=== PATIENT | female | born 1960 | race Two or more races ===

== ENCOUNTER 2021-01-13 11:15 | Inpatient (IN) | payer SELFPAY ==
[~2021-01-13] VITALS: Ht 172.7 cm; Wt 95.0 kg
[2021-01-13] MEDS ORDERED: ZINC SULFATE 220mg CAP or TAB PO ONE (11:30)
[2021-01-13] MEDS ORDERED: CHOLECALCIFEROL (VITD3) 2,000 UNIT CAP/TAB PO ONE (11:30)
[2021-01-13] MEDS ORDERED: ASCORBIC ACID 500 MG TAB PO ONE (11:30)
[2021-01-13] MEDS ORDERED: methylPREDNISolone SOD SUCC 125 MG/2 ML VL IV ONE (11:30)
[2021-01-13 12:05] LABS: Basophils # (auto) 0 10 ^3/uL (0-0.2); Basophils % (auto) 0.4 % (0.0-2.0); Eosinophils # (auto) 0 10 ^3/uL (0-0.8); Eosinophils % (auto) 0.1 % (0.0-7.0); Hematocrit 39.2 % (36.0-46.0); Hemoglobin 13.3 g/dL (12.2-16.2); Lymphocytes # (auto) 1.2 10 ^3/uL (0.4-5.4); Lymphocytes % (auto) 28.7 % (10.0-50.0); Mean Corpuscular Hemoglobin 28.5 pg (28.0-32.0); Mean Corpuscular Volume 83.9 fL (80.0-100.0); Monocytes # (auto) 0.3 10 ^3/uL (0-1.3); Monocytes % (auto) 8.1 % (0.0-12.0); Neutrophils # (auto) 2.6 10 ^3/uL (1.6-8.6); Neutrophils % (auto) 62.7 % (37.0-80.0); Nucleated Red Blood Cells % 0.2 %; Red Blood Cells 4.68 10^6/uL (4.0-5.20); Red Cell Distribution Width 14.1 % (11.8-14.3); White Blood Cell 4.1 10^3/uL (4.4-10.8)
[2021-01-13 12:30] LABS: Albumin 3.2 g/dL (3.4-5.0); Calcium 8.7 mg/dL (8.5-10.1)
[2021-01-13] MEDS ORDERED: AZITHROMYCIN 500MG/ 250ML 250 ML IV ONE (12:30)
[2021-01-13 12:33] LABS: BUN/Creatinine Ratio 13.9; Bilirubin, Total 0.6 mg/dL (0.2-1.0); Total Protein 8.9 g/dL (6.4-8.2)
[2021-01-13] MEDS ORDERED: MORPHINE SULF INJ 2 MG/ML SYRINGE 1ML IV PRN (13:15)
[2021-01-13] MEDS ORDERED: NITROGLYCERIN 0.4 MG SL TAB SL PRN (13:15)
[2021-01-13] MEDS ORDERED: REMDESIVIR PER PHARMACY 0 ML IV SCH (13:15)
[2021-01-13] MEDS ORDERED: PROMETHAZINE HCL 25 MG/ML 1ML IV PRN (13:45)
[2021-01-13] MEDS ORDERED: ACETAMINOPHEN 500 MG TAB PO PRN (13:45)
[2021-01-13] MEDS ORDERED: TEMAZEPAM 15 MG CAP PO PRN (13:45)
[2021-01-13] MEDS ORDERED: LACTULOSE 20Gm/30ML SOLN PO PRN (13:45)
[2021-01-13] MEDS ORDERED: DEXTROSE (50%) 50ML SYRG IV PRN (14:00)
[2021-01-13] MEDS: SODIUM CHLOR 0.9% PF (SALINE LOCK) 10ML VIAL/SYR IV SCH ×2 (14:00→23:00)
[2021-01-13 14:05] VITALS: BP 120/73
[2021-01-13] MEDS ORDERED: IOHEXOL 300 MG/ML 100ML BOTTLE IJ ONE (14:09)
[2021-01-13] MEDS ORDERED: REMDESIVIR 200 MG in NS 210ml LOADING DOSE ADULT IV ONE (15:00)
[2021-01-13] MEDS: FAMOTIDINE 20 MG TAB PO SCH ×2 (15:26→23:00)
[2021-01-13] MEDS: ENOXAPARIN SOD 40 MG/0.4 ML SYRINGE SC SCH ×2 (15:26→23:00)
[2021-01-13 17:50] VITALS: BP 128/84
[2021-01-13] MEDS: ACCU-CHEK COMFORT CURVE STRIP VI SCH ×2 (18:21→23:00)
[2021-01-13] MEDS: InsuLIN REG 1unit/0.01ml Soln (100units/ml) SC SCH ×2 (18:23→23:00)
[2021-01-13 20:00] VITALS: BP 134/81
[2021-01-13] MEDS: traMADol HCL 50 MG TAB PO PRN (20:11)
[2021-01-13] MEDS: BUDESONIDE (INHALATION) 180 MCG IH IN SCH (22:00)
[2021-01-13 22:20] VITALS: BP 134/81
[2021-01-13] MEDS: ALBUTEROL SULF HFA 90MCG INH 200DOSE IN PRN (22:45)
[2021-01-13] MEDS: FLORASTOR (S. BOULARDII) 250 MG CAP PO SCH (23:00)
[2021-01-14] MEDS ORDERED: guaiFENesin-DM 100/10mg/5ml SYR PO PRN (05:00)
[2021-01-14 05:20] VITALS: BP 120/80
[2021-01-14] MEDS: SODIUM CHLOR 0.9% PF (SALINE LOCK) 10ML VIAL/SYR IV SCH ×3 (06:00→21:28)
[2021-01-14] MEDS ORDERED: IVERMECTIN 3 MG TAB PO ONE (07:00)
[2021-01-14 07:14] LABS: Albumin 2.8 g/dL (3.4-5.0); Calcium 8.3 mg/dL (8.5-10.1); Potassium 4.2 mmol/L (3.5-5.1)
[2021-01-14 07:17] LABS: BUN/Creatinine Ratio 18.2; Bilirubin, Total 0.5 mg/dL (0.2-1.0); Total Protein 8.1 g/dL (6.4-8.2)
[2021-01-14] MEDS: ACCU-CHEK COMFORT CURVE STRIP VI SCH ×4 (07:23→21:29)
[2021-01-14] MEDS: InsuLIN REG 1unit/0.01ml Soln (100units/ml) SC SCH ×4 (07:23→21:33)
[2021-01-14 09:00] VITALS: BP 123/77
[2021-01-14] MEDS: ZINC SULFATE 220mg CAP or TAB PO SCH (09:42)
[2021-01-14] MEDS: FAMOTIDINE 20 MG TAB PO SCH ×2 (09:43→21:29)
[2021-01-14] MEDS: FLORASTOR (S. BOULARDII) 250 MG CAP PO SCH ×2 (09:43→21:29)
[2021-01-14] MEDS: ASCORBIC ACID 1,000 MG TAB PO SCH (09:43)
[2021-01-14] MEDS: CHOLECALCIFEROL (VITD3) 2,000 UNIT CAP/TAB PO SCH (09:43)
[2021-01-14] MEDS: DexAMETHasone SOD PHOS 10MG/1ML VIAL INJ IV SCH (09:43)
[2021-01-14] MEDS: ENOXAPARIN SOD 40 MG/0.4 ML SYRINGE SC SCH ×2 (09:44→21:29)
[2021-01-14] MEDS: BUDESONIDE (INHALATION) 180 MCG IH IN SCH ×2 (11:45→19:37)
[2021-01-14] MEDS: ALBUTEROL SULF HFA 90MCG INH 200DOSE IN PRN ×2 (11:45→19:37)
[2021-01-14 12:23] LABS: Urine Bacteria NONE SEEN /hpf (None Seen); Urine Blood Negative /uL (Negative); Urine Hyaline Cast FEW /lpf (0 - 2); Urine Specific Gravity 1.018 (1.001-1.035); Urine WBC 1 /hpf (0 - 5)
[2021-01-14 13:00] VITALS: BP 118/79
[2021-01-14] MEDS: REMDESIVIR 100mg 100 MG in SODIUM CHL 0.9% 230 ML IV SCH (15:44)
[2021-01-14] MEDS: levoFLOXacin 500MG 100 ML IV SCH (16:37)
[2021-01-14 17:00] VITALS: BP 135/75
[2021-01-14 20:00] VITALS: BP 139/87
[2021-01-14] MEDS: PROMETHAZINE W/CODEINE 5 ML ORAL SYRUP PO PRN (21:43)
[2021-01-14] MEDS: traMADol HCL 50 MG TAB PO PRN (21:44)
[2021-01-14 21:55] VITALS: BP 139/87
[2021-01-15 06:04] VITALS: BP 140/84
[2021-01-15] MEDS: ACCU-CHEK COMFORT CURVE STRIP VI SCH ×4 (06:04→21:29)
[2021-01-15] MEDS: InsuLIN REG 1unit/0.01ml Soln (100units/ml) SC SCH ×4 (06:08→21:31)
[2021-01-15] MEDS: IVERMECTIN 3 MG TAB PO SCH (06:15)
[2021-01-15] MEDS: SODIUM CHLOR 0.9% PF (SALINE LOCK) 10ML VIAL/SYR IV SCH ×3 (06:15→21:28)
[2021-01-15] MEDS: ALBUTEROL SULF HFA 90MCG INH 200DOSE IN PRN ×2 (06:20→19:42)
[2021-01-15] MEDS: BUDESONIDE (INHALATION) 180 MCG IH IN SCH ×2 (06:20→19:42)
[2021-01-15 06:36] LABS: Potassium 3.9 mmol/L (3.5-5.1)
[2021-01-15 06:44] LABS: Albumin 2.6 g/dL (3.4-5.0); BUN/Creatinine Ratio 20.9; Bilirubin, Total 0.5 mg/dL (0.2-1.0); Calcium 8.4 mg/dL (8.5-10.1)
[2021-01-15 08:30] VITALS: BP 120/81
[2021-01-15] MEDS: levoFLOXacin 500MG 100 ML IV SCH (09:45)
[2021-01-15] MEDS: FLORASTOR (S. BOULARDII) 250 MG CAP PO SCH ×2 (09:45→21:28)
[2021-01-15] MEDS: ASCORBIC ACID 1,000 MG TAB PO SCH (09:45)
[2021-01-15] MEDS: ZINC SULFATE 220mg CAP or TAB PO SCH (09:45)
[2021-01-15] MEDS: CHOLECALCIFEROL (VITD3) 2,000 UNIT CAP/TAB PO SCH (09:45)
[2021-01-15] MEDS: FAMOTIDINE 20 MG TAB PO SCH ×2 (09:45→21:29)
[2021-01-15] MEDS: DexAMETHasone SOD PHOS 10MG/1ML VIAL INJ IV SCH (09:45)
[2021-01-15] MEDS: ENOXAPARIN SOD 40 MG/0.4 ML SYRINGE SC SCH ×2 (09:46→21:29)
[2021-01-15] MEDS: PROMETHAZINE W/CODEINE 5 ML ORAL SYRUP PO PRN ×2 (10:43→22:15)
[2021-01-15 12:30] VITALS: BP 121/84
[2021-01-15] MEDS: REMDESIVIR 100mg 100 MG in SODIUM CHL 0.9% 230 ML IV SCH (14:32)
[2021-01-15 17:00] VITALS: BP 133/88
[2021-01-15 20:00] VITALS: BP 139/87
[2021-01-15 21:47] VITALS: BP 126/70
[2021-01-15] MEDS: traMADol HCL 50 MG TAB PO PRN (22:19)
[2021-01-16 05:30] VITALS: BP 133/83
[2021-01-16] MEDS: ALBUTEROL SULF HFA 90MCG INH 200DOSE IN PRN (05:59)
[2021-01-16] MEDS: BUDESONIDE (INHALATION) 180 MCG IH IN SCH (05:59)
[2021-01-16] MEDS: SODIUM CHLOR 0.9% PF (SALINE LOCK) 10ML VIAL/SYR IV SCH ×3 (06:21→21:40)
[2021-01-16] MEDS: ACCU-CHEK COMFORT CURVE STRIP VI SCH ×4 (06:21→21:40)
[2021-01-16] MEDS: IVERMECTIN 3 MG TAB PO SCH (06:22)
[2021-01-16] MEDS: InsuLIN REG 1unit/0.01ml Soln (100units/ml) SC SCH ×4 (06:35→21:43)
[2021-01-16 07:44] LABS: Potassium 3.6 mmol/L (3.5-5.1)
[2021-01-16 08:00] VITALS: BP 113/76
[2021-01-16 08:07] LABS: Albumin 2.7 g/dL (3.4-5.0); BUN/Creatinine Ratio 21.7; Bilirubin, Total 0.6 mg/dL (0.2-1.0); Calcium 8.3 mg/dL (8.5-10.1); Total Protein 8.2 g/dL (6.4-8.2)
[2021-01-16] MEDS: ENOXAPARIN SOD 40 MG/0.4 ML SYRINGE SC SCH ×2 (10:57→21:41)
[2021-01-16] MEDS: CHOLECALCIFEROL (VITD3) 2,000 UNIT CAP/TAB PO SCH (10:57)
[2021-01-16] MEDS: levoFLOXacin 500MG 100 ML IV SCH (10:58)
[2021-01-16] MEDS: FAMOTIDINE 20 MG TAB PO SCH ×2 (10:58→21:40)
[2021-01-16] MEDS: ASCORBIC ACID 1,000 MG TAB PO SCH (10:58)
[2021-01-16] MEDS: FLORASTOR (S. BOULARDII) 250 MG CAP PO SCH ×2 (10:58→21:40)
[2021-01-16] MEDS: DexAMETHasone SOD PHOS 10MG/1ML VIAL INJ IV SCH (10:59)
[2021-01-16] MEDS: ZINC SULFATE 220mg CAP or TAB PO SCH (10:59)
[2021-01-16 12:00] VITALS: BP 118/76
[2021-01-16] MEDS: REMDESIVIR 100mg 100 MG in SODIUM CHL 0.9% 230 ML IV SCH (14:35)
[2021-01-16 15:15] VITALS: BP 118/76
[2021-01-16 16:00] VITALS: BP 112/65
[2021-01-16] MEDS: PROMETHAZINE W/CODEINE 5 ML ORAL SYRUP PO PRN (20:19)
[2021-01-16] MEDS: traMADol HCL 50 MG TAB PO PRN (20:19)
[2021-01-16 22:00] VITALS: BP 136/81
[2021-01-17] MEDS: ALBUTEROL SULF HFA 90MCG INH 200DOSE IN PRN ×3 (00:49→23:10)
[2021-01-17] MEDS: BUDESONIDE (INHALATION) 180 MCG IH IN SCH ×3 (00:49→23:10)
[2021-01-17 05:00] VITALS: BP 112/68
[2021-01-17] MEDS: ACCU-CHEK COMFORT CURVE STRIP VI SCH ×4 (06:15→22:20)
[2021-01-17] MEDS: InsuLIN REG 1unit/0.01ml Soln (100units/ml) SC SCH ×4 (06:16→21:55)
[2021-01-17] MEDS: SODIUM CHLOR 0.9% PF (SALINE LOCK) 10ML VIAL/SYR IV SCH ×3 (06:16→21:54)
[2021-01-17] MEDS: IVERMECTIN 3 MG TAB PO SCH (06:30)
[2021-01-17 07:00] LABS: Potassium 3.7 mmol/L (3.5-5.1)
[2021-01-17 07:08] LABS: BUN/Creatinine Ratio 21.9; Bilirubin, Total 0.6 mg/dL (0.2-1.0); Calcium 8.6 mg/dL (8.5-10.1)
[2021-01-17 08:00] VITALS: BP 98/63
[2021-01-17] MEDS: levoFLOXacin 500MG 100 ML IV SCH (10:56)
[2021-01-17] MEDS: DexAMETHasone SOD PHOS 10MG/1ML VIAL INJ IV SCH (10:56)
[2021-01-17] MEDS: FLORASTOR (S. BOULARDII) 250 MG CAP PO SCH ×2 (10:57→21:54)
[2021-01-17] MEDS: ZINC SULFATE 220mg CAP or TAB PO SCH (10:57)
[2021-01-17] MEDS: ENOXAPARIN SOD 40 MG/0.4 ML SYRINGE SC SCH ×2 (10:57→22:19)
[2021-01-17] MEDS: FAMOTIDINE 20 MG TAB PO SCH ×2 (10:57→22:33)
[2021-01-17] MEDS: CHOLECALCIFEROL (VITD3) 2,000 UNIT CAP/TAB PO SCH (10:57)
[2021-01-17] MEDS: ASCORBIC ACID 1,000 MG TAB PO SCH (10:57)
[2021-01-17 12:00] VITALS: BP 100/69
[2021-01-17 13:33] VITALS: BP 106/58
[2021-01-17] MEDS ORDERED: POTASSIUM CHL 20 Meq TABLET PO ONE (14:45)
[2021-01-17] MEDS ORDERED: FUROSEMIDE 20 MG TAB PO ONE (14:45)
[2021-01-17] MEDS: REMDESIVIR 100mg 100 MG in SODIUM CHL 0.9% 230 ML IV SCH (15:04)
[2021-01-17 16:00] VITALS: BP 109/73
[2021-01-17] MEDS: PROMETHAZINE W/CODEINE 5 ML ORAL SYRUP PO PRN (20:06)
[2021-01-17 21:49] VITALS: BP 108/70
[2021-01-18 05:00] VITALS: BP 93/70
[2021-01-18] MEDS: ALBUTEROL SULF HFA 90MCG INH 200DOSE IN PRN ×2 (06:14→23:35)
[2021-01-18] MEDS: BUDESONIDE (INHALATION) 180 MCG IH IN SCH ×2 (06:14→23:35)
[2021-01-18] MEDS: SODIUM CHLOR 0.9% PF (SALINE LOCK) 10ML VIAL/SYR IV SCH ×3 (06:26→23:01)
[2021-01-18] MEDS: IVERMECTIN 3 MG TAB PO SCH (06:26)
[2021-01-18] MEDS: InsuLIN REG 1unit/0.01ml Soln (100units/ml) SC SCH ×4 (06:27→23:01)
[2021-01-18 06:28] LABS: Basophils # (auto) 0 10 ^3/uL (0-0.2); Basophils % (auto) 0.2 % (0.0-2.0); Eosinophils # (auto) 0 10 ^3/uL (0-0.8); Eosinophils % (auto) 0.5 % (0.0-7.0); Hematocrit 38.4 % (36.0-46.0); Lymphocytes # (auto) 1.8 10 ^3/uL (0.4-5.4); Lymphocytes % (auto) 28.4 % (10.0-50.0); Mean Corpuscular Hemoglobin 28.7 pg (28.0-32.0); Mean Corpuscular Volume 84.6 fL (80.0-100.0); Monocytes # (auto) 0.7 10 ^3/uL (0-1.3); Monocytes % (auto) 11.5 % (0.0-12.0); Neutrophils # (auto) 3.7 10 ^3/uL (1.6-8.6); Neutrophils % (auto) 59.4 % (37.0-80.0); Nucleated Red Blood Cells % 0.1 %; Red Blood Cells 4.54 10^6/uL (4.0-5.20); White Blood Cell 6.2 10^3/uL (4.4-10.8)
[2021-01-18 06:42] LABS: BUN/Creatinine Ratio 20.7; Calcium 8.5 mg/dL (8.5-10.1); Potassium 3.9 mmol/L (3.5-5.1)
[2021-01-18] MEDS: ACCU-CHEK COMFORT CURVE STRIP VI SCH ×4 (06:42→22:00)
[2021-01-18] MEDS: ASCORBIC ACID 1,000 MG TAB PO SCH (08:58)
[2021-01-18] MEDS: ZINC SULFATE 220mg CAP or TAB PO SCH (08:58)
[2021-01-18] MEDS: FLORASTOR (S. BOULARDII) 250 MG CAP PO SCH ×2 (08:58→23:01)
[2021-01-18] MEDS: levoFLOXacin 500MG 100 ML IV SCH (08:59)
[2021-01-18] MEDS: FAMOTIDINE 20 MG TAB PO SCH (08:59)
[2021-01-18] MEDS: DexAMETHasone SOD PHOS 10MG/1ML VIAL INJ IV SCH (08:59)
[2021-01-18] MEDS: ENOXAPARIN SOD 40 MG/0.4 ML SYRINGE SC SCH ×2 (08:59→23:02)
[2021-01-18] MEDS: CHOLECALCIFEROL (VITD3) 2,000 UNIT CAP/TAB PO SCH (08:59)
[2021-01-18 09:00] VITALS: BP 102/61
[2021-01-18 13:00] VITALS: BP 100/60
[2021-01-18 17:00] VITALS: BP 102/71
[2021-01-18 22:00] VITALS: BP 106/59
[2021-01-18] MEDS: PROMETHAZINE W/CODEINE 5 ML ORAL SYRUP PO PRN (23:02)
[2021-01-19 05:23] VITALS: BP 113/74
[2021-01-19] MEDS: SODIUM CHLOR 0.9% PF (SALINE LOCK) 10ML VIAL/SYR IV SCH ×2 (06:33→11:25)
[2021-01-19] MEDS: InsuLIN REG 1unit/0.01ml Soln (100units/ml) SC SCH ×3 (06:35→17:05)
[2021-01-19] MEDS: PROMETHAZINE W/CODEINE 5 ML ORAL SYRUP PO PRN ×2 (06:42→15:54)
[2021-01-19] MEDS: ACCU-CHEK COMFORT CURVE STRIP VI SCH ×3 (06:42→17:01)
[2021-01-19] MEDS: ALBUTEROL SULF HFA 90MCG INH 200DOSE IN PRN (08:16)
[2021-01-19] MEDS: BUDESONIDE (INHALATION) 180 MCG IH IN SCH (08:16)
[2021-01-19 09:00] VITALS: BP 90/56
[2021-01-19] MEDS: CHOLECALCIFEROL (VITD3) 2,000 UNIT CAP/TAB PO SCH (09:05)
[2021-01-19] MEDS: ZINC SULFATE 220mg CAP or TAB PO SCH (09:05)
[2021-01-19] MEDS: ASCORBIC ACID 1,000 MG TAB PO SCH (09:05)
[2021-01-19] MEDS: FLORASTOR (S. BOULARDII) 250 MG CAP PO SCH (09:05)
[2021-01-19] MEDS: ENOXAPARIN SOD 40 MG/0.4 ML SYRINGE SC SCH (09:06)
[2021-01-19] MEDS ORDERED: DexAMETHasone 4 MG TAB PO SCH (10:00)
[2021-01-19 13:00] VITALS: BP 95/61
[2021-01-19 13:40] VITALS: BP 100/69
[2021-01-19 17:00] VITALS: BP 109/77
== END 2021-01-19 18:15 | disposition home or self-care (01) | DRG 177 ==
LOC: ER 11:15 → TELE 13:10 → TELE-EAST 17:17
PROVIDERS: ADMIT Internal Medicine; ATTEND Internal Medicine
PROC: XW033E5 Introduction of Remdesivir Anti-infective into Peripheral Vein, Percutaneous Approach, New Technology Group 5 (ICD-10-PCS; principal; 2021-01-13)
DX: U07.1 COVID-19 (principal); J12.82 Pneumonia due to coronavirus disease 2019; J96.01 Acute respiratory failure with hypoxia; D89.834 Cytokine release syndrome, grade 4; D69.6 Thrombocytopenia, unspecified; E66.9 Obesity, unspecified; K40.90 Unilateral inguinal hernia, without obstruction or gangrene, not specified as recurrent; E78.5 Hyperlipidemia, unspecified; K76.0 Fatty (change of) liver, not elsewhere classified; E11.65 Type 2 diabetes mellitus with hyperglycemia; K42.9 Umbilical hernia without obstruction or gangrene; Z79.51 Long term (current) use of inhaled steroids; Z79.82 Long term (current) use of aspirin; Z83.3 Family history of diabetes mellitus; Z68.32 Body mass index [BMI] 32.0-32.9, adult
CPT/HCPCS: 36415; 71045; 74177; 80048; 80053; 81001; 82306; 82962; 83036; 83605; 85025; 85379; 87040; 87426; 93005; 94640; 96365; 96367; 96375; G0378; J1100; J1815; J1956

== ENCOUNTER 2022-05-19 08:35 | Emergency (ER) | payer SELFPAY ==
[~2022-05-19] VITALS: Ht 172.7 cm; Wt 95.5 kg
[2022-05-19 08:57] VITALS: BP 141/105
[2022-05-19] MEDS ORDERED: PROM1SOL4 PO (09:49)
[2022-05-19] MEDS ORDERED: AZIT500T66 PO (09:49)
== END 2022-05-19 09:56 | disposition home or self-care (01) ==
LOC: ER 08:35
DX: J03.90 Acute tonsillitis, unspecified (principal); J20.9 Acute bronchitis, unspecified; E11.9 Type 2 diabetes mellitus without complications; Z90.710 Acquired absence of both cervix and uterus
CPT/HCPCS: 71046